=== PATIENT | female | born 1975 | race Caucasian/White ===

== ENCOUNTER 2021-11-14 06:03 | Emergency (ER) | payer SELFPAY ==
[2021-11-14] MEDS ORDERED: IBUPROFEN 400 MG TAB ONE (06:29)
[2021-11-14] MEDS ORDERED: HYDROCODONE/APAP 10/325 TAB ONE (06:29)
[2021-11-14] MEDS ORDERED: IBUPROFEN 200 MG TAB PO ONE (06:29)
--- NOTE | 2021-11-14 07:28 | ER ---
Nurse's Notes [facility] Name: Jamison Barnes Age: 46 yrs Sex: Female : 1975 Arrival Date: 11/14/2021 Time: 06:06 Bed 20 Private MD: Diagnosis: Displaced fracture of lateral malleolus of left fibula, initial encounter for closed fracture Presentation: 11/14 06:29 Chief complaint: Patient states: tripped over dog. Mechanism of Injury: Fall. ja4 06:29 Acuity: REYNA 3 ja4 06:29 Method Of Arrival: Ambulatory ja4 06:36 Coronavirus screen: At this time, the client does not indicate any symptoms associated [facility] with coronavirus-19. Ebola Screen: No symptoms or risks identified at this time. Initial Sepsis Screen: Does the patient meet any 2 criteria? No. Patient's initial sepsis screen is negative. Risk Assessment: Do you want to hurt yourself or someone else? Patient reports no desire to harm self or others. Historical: - Allergies: 06:37 Sulfa (Sulfonamide Antibiotics); ja4 06:37 Iodine; ja4 - Immunization history: Last tetanus immunization: - up to date. - Family history:: not pertinent. Screenin:00 Abuse screen: Denies threats or abuse. Tuberculosis screening: No symptoms or risk [facility] factors identified. 08:41 Nutritional screening: No deficits noted. Fall Risk Fall in past 12 months (25 points). tp1 No secondary diagnosis (0 pts). No IV (0 pts). Ambulatory Aid- None/Bed Rest/Nurse Assist (0 pts). Gait- Normal/Bed Rest/Wheelchair (0 pts) Mental Status- Oriented to own ability (0 pts). Primary Survey: 06:00 NO uncontrolled hemorrhage observed. A: The client is awake and alert. The airway is ja4 patent. Breathing/Chest: Spontaneous respiratory effort, equal unlabored respirations, breath sounds clear bilaterally, regular pattern, symmetrical chest rise and fall. Circulation: No external hemorrhage present. Regular and strong central pulse, skin warm/dry/normal color. Disability Client is alert. Client responds to verbal stimuli. Client reponds to painful stimuli. Secondary Survey: 06:00 Musculoskeletal: Reports. ja4 Assessment: 06:00 General: Appears uncomfortable, slender, Behavior is calm, cooperative, appropriate for [facility] age. 06:00 Pain: Complains of pain in left ankle Pain currently is 10 out of 10 on a pain scale. ja4 Musculoskeletal: Reports. Injury Description: abrasion and swelling. 07:12 General: Appears in no apparent distress. uncomfortable, Behavior is cooperative, tp1 crying. Pain: Complains of pain in left ankle Pain radiates to left leg Pain currently is 8 out of 10 on a pain scale. Is continuous. Neuro: Level of Consciousness is awake, alert, obeys commands, Oriented to person, place, time, situation. Cardiovascular: Capillary refill < 3 seconds in bilateral toes Patient's skin is warm and dry. Pulses are all present. Respiratory: Airway is patent Respiratory effort is even, unlabored. Derm:. Musculoskeletal: Circulation, motion, and sensation intact. Swelling present in right ankle. 07:29 Reassessment: discharge pending Xray results. tp1 07:51 Reassessment: José DONG contacted warehouse director for a boot due to not having correct tp1 size in ER. 08:12 Reassessment: Patient appears in no apparent distress at this time. No changes from tp1 previously documented assessment. Patient is alert, oriented x 3, equal unlabored respirations, skin warm/dry/pink. 08:31 Reassessment: walking boot applied. tp1 Vital Signs: 06:00 BP 104 / 75; Pulse 68; Resp 16; Pulse Ox 98% ; Weight 56.7 kg; Height 5 ft. 6 in. ja4 (167.64 cm); Pain 10/10; 07:27 BP 99 / 70; Pulse 61; Resp 16; Pulse Ox 100% on R/A; tp1 08:06 Temp 97.9(TE); tp1 06:00 Body Mass Index 20.18 (56.70 kg, 167.64 cm) ja4 [place] Coma Score: 06:00 Eye Response: spontaneous(4). Verbal Response: oriented(5). Motor Response: obeys ja4 commands(6). Total: 15. Trauma Score (Adult): 06:00 Eye Response: spontaneous(1); Verbal Response: oriented(1); Motor Response: obeys ja4 commands(2); Systolic BP: > 89 mm Hg(4); Respiratory Rate: 10 to 29 per min(4); Danny Score: 15; Trauma Score: 12 ED Course: 06:00 Bed in low position. Call light in reach. Adult w/ patient. ja4 06:06 Patient arrived in ED. bp1 06:15 Josue Ferro MD is Attending Physician. [facility] 06:17 Sebastián Massey, RN is Primary Nurse. ja4 06:31 Triage completed. ja4 07:00 Report received from Omer DONG. tp1 07:24 Tib Fib Left XRAY In Process Unspecified. EDMS 07:24 Ankle Left 3 View XRAY In Process Unspecified. EDMS 07:27 Mesfin Pan MD is Referral Physician. asya 08:23 Primary Nurse role handed off by Sebastián Massey RN tp1 08:23 Rachel Aggarwal RN is Primary Nurse. tp1 08:41 Patient did not have IV access during this emergency room visit. tp1 08:41 No provider procedures requiring assistance completed. tp1 Administered Medications: 06:28 Drug: [place] (HYDROcodone-acetaminophen) 10 mg-325 mg 1 tabs Route: PO; ja4 06:29 Drug: Motrin (ibuprofen) 600 mg Route: PO; ja4 Medication: 08:42 VIS not applicable for this client. tp1 Outcome: 07:27 Discharge ordered by . [facility] 08:41 Discharged to home ambulatory. tp1 08:41 Condition: good 08:41 Discharge instructions given to patient, Instructed on discharge instructions, follow up and referral plans. medication usage, Demonstrated understanding of instructions, follow-up care, medications, Prescriptions given X 2. 08:42 Patient left the ED. tp1 Signatures: Dispatcher [employer] [facility] Josue Ferro MD MD cha Paniauga, Brittany bp1 Rachel Aggarwal, RN RN tp1 Sebastián Massey, LETITIA RN ja Corrections: (The following items were deleted from the chart) 08:32 08:31 Reassessment: walking boot applied tp1 tp1
--- NOTE | 2021-11-14 07:28 | EDPHYS ---
Physician Documentation [facility] Name: Jamison Barnes Age: 46 yrs Sex: Female : 1975 Arrival Date: 11/14/2021 Time: 06:06 Bed 20 Private MD: ED Physician Josue Ferro HPI: 11/14 07:23 This 46 yrs old Female presents to ER via Ambulatory with complaints of Fall asya Injury. 07:23 Details of fall: The patient fell from an upright position, while walking. Onset: The asya symptoms/episode began/occurred just prior to arrival. Associated injuries: The patient sustained left lateral ankle, decreased range of motion. Severity of symptoms: At their worst the symptoms were mild, in the emergency department the symptoms are unchanged. The patient has not experienced similar symptoms in the past. Historical: - Allergies: 06:37 Sulfa (Sulfonamide Antibiotics); ja4 06:37 Iodine; ja4 - Immunization history: Last tetanus immunization: - up to date. - Family history:: not pertinent. ROS: 07:23 Constitutional: Negative for fever, chills, and weight loss, Eyes: Negative for injury, asya pain, redness, and discharge, ENT: Negative for injury, pain, and discharge, Neck: Negative for injury, pain, and swelling, Cardiovascular: Negative for chest pain, palpitations, and edema, Respiratory: Negative for shortness of breath, cough, wheezing, and pleuritic chest pain, Abdomen/GI: Negative for abdominal pain, nausea, vomiting, diarrhea, and constipation, Back: Negative for injury and pain, : Negative for injury, bleeding, discharge, and swelling, Skin: Negative for injury, rash, and discoloration, Neuro: Negative for headache, weakness, numbness, tingling, and seizure, Psych: Negative for depression, anxiety, suicide ideation, homicidal ideation, and hallucinations, Allergy/Immunology: Negative for hives, rash, and allergies, Endocrine: Negative for neck swelling, polydipsia, polyuria, polyphagia, and marked weight changes, Hematologic/Lymphatic: Negative for swollen nodes, abnormal bleeding, and unusual bruising. 07:23 MS/extremity: Positive for decreased range of motion, pain, swelling, tenderness. Exam: 07:23 Constitutional: This is a well developed, well nourished patient who is awake, alert, asya and in no acute distress. Head/Face: Normocephalic, atraumatic. Eyes: Pupils equal round and reactive to light, extra-ocular motions intact. Lids and lashes normal. Conjunctiva and sclera are non-icteric and not injected. Cornea within normal limits. Periorbital areas with no swelling, redness, or edema. ENT: Nares patent. No nasal discharge, no septal abnormalities noted. Tympanic membranes are normal and external auditory canals are clear. Oropharynx with no redness, swelling, or masses, exudates, or evidence of obstruction, uvula midline. Mucous membranes moist. Neck: Trachea midline, no thyromegaly or masses palpated, and no cervical lymphadenopathy. Supple, full range of motion without nuchal rigidity, or vertebral point tenderness. No Meningismus. Chest/axilla: Normal chest wall appearance and motion. Nontender with no deformity. No lesions are appreciated. Cardiovascular: Regular rate and rhythm with a normal S1 and S2. No gallops, murmurs, or rubs. Normal PMI, no JVD. No pulse deficits. Respiratory: Lungs have equal breath sounds bilaterally, clear to auscultation and percussion. No rales, rhonchi or wheezes noted. No increased work of breathing, no retractions or nasal flaring. Abdomen/GI: Soft, non-tender, with normal bowel sounds. No distension or tympany. No guarding or rebound. No evidence of tenderness throughout. Back: No spinal tenderness. No costovertebral tenderness. Full range of motion. Skin: Warm, dry with normal turgor. Normal color with no rashes, no lesions, and no evidence of cellulitis. Neuro: Awake and alert, GCS 15, oriented to person, place, time, and situation. Cranial nerves II-XII grossly intact. Motor strength 5/5 in all extremities. Sensory grossly intact. Cerebellar exam normal. Normal gait. Psych: Awake, alert, with orientation to person, place and time. Behavior, mood, and affect are within normal limits. 07:23 Musculoskeletal/extremity: Extremities: noted in the left lateral ankle: decreased ROM, pain, ROM: limited active range of motion due to pain, limited passive range of motion due to pain, Circulation is intact in all extremities. Sensation intact. Compartment Syndrome exam of affected extremity: is normal. DVT Exam: negative Homans' sign noted on exam, no appreciated bluish discoloration, no erythema, no increased warmth, pain, swelling, tenderness. Vital Signs: 06:00 BP 104 / 75; Pulse 68; Resp 16; Pulse Ox 98% ; Weight 56.7 kg; Height 5 ft. 6 in. ja4 (167.64 cm); Pain 10/10; 07:27 BP 99 / 70; Pulse 61; Resp 16; Pulse Ox 100% on R/A; tp1 08:06 Temp 97.9(TE); tp1 06:00 Body Mass Index 20.18 (56.70 kg, 167.64 cm) ja4 Danny Coma Score: 06:00 Eye Response: spontaneous(4). Verbal Response: oriented(5). Motor Response: obeys ja4 commands(6). Total: 15. Trauma Score (Adult): 06:00 Eye Response: spontaneous(1); Verbal Response: oriented(1); Motor Response: obeys ja4 commands(2); Systolic BP: > 89 mm Hg(4); Respiratory Rate: 10 to 29 per min(4); [place] Score: 15; Trauma Score: 12 MDM: 06:16 Patient medically screened. asya 07:25 Differential diagnosis: fracture. Data reviewed: vital signs, nurses notes, radiologic asya studies, plain films. Data interpreted: production generalist: not applicable for this patient encounter. rate is 68 beats/min, rhythm is regular. Test interpretation: by ED physician or midlevel provider: plain radiologic studies. Counseling: I had a detailed discussion with the patient and/or guardian regarding: the historical points, exam findings, and any diagnostic results supporting the discharge/admit diagnosis, lab results, radiology results. 11/14 06:16 Order name: Tib Fib Left XRAY [facility] 11/14 06:16 Order name: Ankle Left 3 View XRAY [facility] 11/14 06:16 Order name: Ice pack; Complete Time: 06:28 [facility] 11/14 07:23 Order name: Walking boot asya Administered Medications: 06:28 Drug: [place] (HYDROcodone-acetaminophen) 10 mg-325 mg 1 tabs Route: PO; ja4 06:29 Drug: Motrin (ibuprofen) 600 mg Route: PO; ja4 Disposition Summary: 11/14/21 07:27 Discharge Ordered Location: Home asya Problem: new asya Symptoms: have improved asya Condition: Stable asya Diagnosis - Displaced fracture of lateral malleolus of left fibula, initial encounter for [facility] closed fracture Followup: asya - With: Private Physician - When: 2 - 3 days - Reason: Recheck today's complaints, Continuance of care, Re-evaluation by your physician Followup: asya - With: Mesfin Pan MD - When: 2 - 3 days - Reason: Recheck today's complaints, Continuance of care, Re-evaluation by your physician Discharge Instructions: - Discharge Summary Sheet [facility] - Ankle Fracture [facility] Forms: - Medication Reconciliation Form [facility] - Thank You Letter asya - Antibiotic Education asya - Prescription Opioid Use [facility] - Work release form tp1 Prescriptions: - Ibuprofen 600 mg Oral Tablet - take 1 tablet by ORAL route every 6 hours As needed take with food; 30 tablet; asya Refills: 0, Product Selection Permitted - Tylenol-Codeine #3 300 mg-30 mg Oral - take 2 tablet by ORAL route every 6 hours; 24 tablet; Refills: 0, Product [facility] Selection Permitted Signatures: Dispatcher [employer] Josue Demarco MD MD cha Allen, Jeremy, RN RN ja4
--- NOTE | 2021-11-14 07:43 | RAD REPORT ---
EXAM DESCRIPTION: Dewayne Mobley Left11/14/2021 7:22 am CLINICAL HISTORY: Left leg pain status post injury FINDINGS: Mildly displaced oblique fracture distal fibula. No dislocation
--- NOTE | 2021-11-14 07:43 | RAD REPORT ---
EXAM DESCRIPTION: RAD - Ankle Left 3 View -11/14/2021 7:22 am CLINICAL HISTORY: Left ankle pain status post injury FINDINGS: Mildly displaced oblique fracture distal fibula. No dislocation
[2021-11-15 18:21] VITALS: TEMP 97.9
[2021-11-15 18:34] VITALS: BP 99/70; O2SAT 100
== END 2021-11-14 08:42 | disposition home or self-care (01) ==
LOC: ER 06:03
DX: S82.62XA Displaced fracture of lateral malleolus of left fibula, initial encounter for closed fracture (principal)
CPT/HCPCS: 99283